=== PATIENT | male | born 1970 | race Caucasian/White ===

== ENCOUNTER 2019-05-19 19:06 | Emergency (ER) | payer OTHER ==
[~2019-05-19] VITALS: Ht 165.1 cm; Wt 72.1 kg
[2019-05-19 19:45] VITALS: Ht 165.1 cm; Wt 72.1 kg
[2019-05-19 20:46] LABS: BASOPHIL % 0.4 % (0-2); PLATELET COUNT 243 x10^3mcL (130-400); RED CELL DISTRIBUTION WIDTH 12.8 % (11.5-14.5)
[2019-05-19 21:02] LABS: ALBUMIN 4.3 g/dL (3.4-5.0); ALKALINE PHOSPHATASE 82 U/L (46-116); ALT/SGPT 70 U/L (16-63); AST/SGOT 20 U/L (15-37); BILIRUBIN TOTAL 0.6 mg/dL (0.20-1.00); CALCIUM 9.3 mg/dL (8.5-10.1); CARBON DIOXIDE 28.1 mmol/L (21-32); CHLORIDE SERUM 97 mmol/L (98-107); CREATININE SERUM 0.8 mg/dL (0.7-1.3); GFR1 > 60 mL/min; GLUCOSE SERUM 372 mg/dL (74-106); LIPASE 127 IU/L (73-393); POTASSIUM SERUM 4.2 mmol/L (3.5-5.1); SODIUM SERUM 132 mmol/L (136-145)
[2019-05-19 21:04] LABS: TOTAL PROTEIN, SERUM 8.3 g/dL (6.4-8.2)
[2019-05-20 00:25] VITALS: BP 105/71
== END 2019-05-20 00:30 | disposition home or self-care (01) ==
LOC: ED 19:06
PROVIDERS: Emergency Medicine
DX: E11.65 Type 2 diabetes mellitus with hyperglycemia (principal); I10 Essential (primary) hypertension; E78.00 Pure hypercholesterolemia, unspecified
CPT/HCPCS: 36415; 82962